=== PATIENT | male | born 1955 | race Caucasian/White ===

== ENCOUNTER 2024-10-07 06:58 | Day surgery (SDC) | payer MEDICARE ==
[2024-10-07] MEDS ORDERED: fentaNYL 50 MCG/ML SDV ONE (07:00)
[2024-10-07] MEDS ORDERED: Propofol 200 MG/20 ML SDV ONE (07:00)
[2024-10-07] MEDS ORDERED: Midazolam 1 MG/ML 2 ML SDV ONE (07:00)
[2024-10-07] MEDS: Lactated Ringers 1,000 ML IV SCH (07:23)
[2024-10-07] MEDS ORDERED: Atropine 0.4 MG/ML SDV ONE (08:54)
== END 2024-10-07 10:10 | disposition home or self-care (01) ==
LOC: JP.SDS 06:58
PROVIDERS: ATTEND Surgery
DX: Z12.11 Encounter for screening for malignant neoplasm of colon (principal); D12.5 Benign neoplasm of sigmoid colon; K57.30 Diverticulosis of large intestine without perforation or abscess without bleeding; J45.909 Unspecified asthma, uncomplicated
CPT/HCPCS: 00811; 45380; 88305; J0461; J2250; J2704; J3010; J7120